=== PATIENT | female | born 1965 | race Caucasian/White ===

== ENCOUNTER 2021-10-17 12:38 | Emergency (ER) | payer OTHER ==
[~2021-10-17] VITALS: Ht 160 cm; Wt 93.9 kg
[2021-10-17 12:58] VITALS: BP_SYST 160
--- NOTE | 2021-10-17 12:58 | NUR ---
Pt triaged and placed in waiting room pending bed availability
--- NOTE | 2021-10-17 13:29 | NUR ---
Dr Fairchild to waiting area to examine patient
--- NOTE | 2021-10-17 14:20 | NUR ---
Patient to ER bed 3 for evaluation. Side rails up. Report given to Monique HARRELL.
--- NOTE | 2021-10-17 14:27 | NUR ---
Pt here from home reporting lower abd pain, described as "uterine contractions", 10/10 at moments. Does report PMH fibroids. VSS when checked. Pt alert and oriented x 3. Ambulating with steady gait. Awaiting lab results. Labs drawn while pt was in waiting room.
--- NOTE | 2021-10-17 14:44 | NUR ---
PATIENT BROUGHT TO CT AT THIS TIME.
[2021-10-17] MEDS ORDERED: KETOROLAC TROMETHAMINE 30 MG VIAL IVP ONE (14:45)
[2021-10-17] MEDS ORDERED: NACL 0.9% 1,000 ML IV ONE (14:45)
--- NOTE | 2021-10-17 14:46 | NUR ---
COVID SWAB DONE. URINE SPECIMEN COLLECTED. WALKED TO LAB.
[2021-10-17] MEDS ORDERED: fentaNYL CITRATE/PF 100 MCG/2 ML AMP IVP ONE (15:30)
[2021-10-17] MEDS ORDERED: ONDANSETRON HCL 4 MG/2 ML VIAL IVP ONE (15:30)
[2021-10-17 15:42] LABS: BILIRUBIN,URINE NEGATIVE (NEGATIVE); BLOOD, URINE NEGATIVE (NEGATIVE); COLOR,URINE YELLOW (YELLOW); GLUCOSE,URINE NEGATIVE (NEGATIVE); KETONES,URINE NEGATIVE (NEGATIVE); LEUKOCYTE ESTERASE ,URINE NEGATIVE (NEGATIVE); NITRITE, URINE NEGATIVE (NEGATIVE); PH,URINE 6.5 (5.0-8.0); PROTEIN URINE NEGATIVE (NEGATIVE); UROBILINOGEN,URINE 0.2 (0.2-1.0)
[2021-10-17 16:09] LABS: CLARITY/URINE HAZY (CLEAR)
[2021-10-17 16:17] LABS: BASOPHILS % (AUTO) 0.3 % (0.0-2.0); EOSINOPHILS % (AUTO) 0.2 % (0.0-4.0); HEMATOCRIT 38.9 % (36-48); HEMOGLOBIN 13.3 g/dL (12.0-16.0); LYMPHOCYTES # (AUTO) 0.6 K/uL (1.0-5.5); LYMPHOCYTES % (AUTO) 4.8 % (20.5-51.5); MEAN CORPUSCULAR HEMOGLOBIN 31 pg (27-31); MEAN CORPUSCULAR HGB CONC 34 % (32-36); MEAN CORPUSCULAR VOLUME 90 fL (79.0-98.0); MONOCYTES # (AUTO) 0.6 K/uL (0.0-1.0); MONOCYTES % (AUTO) 5.2 % (1.7-9.3); NEUTROPHILS # (AUTO) 10.9 K/uL (1.8-7.7); NEUTROPHILS % (AUTO) 89.5 % (40.0-70.0); PLATELET COUNT (AUTO) 298 K/uL (130-430); RED BLOOD CELL COUNT(AUTO) 4.31 MIL/uL (4.2-6.2); RED CELL DISTRIBUTION WIDTH 12.5 % (9.0-15.0); WHITE BLOOD COUNT (AUTO) 12.2 K/uL (4.8-10.8)
[2021-10-17 16:29] LABS: RBC,URINE 0-3 /HPF (0-3)
[2021-10-17 16:30] LABS: BACTERIA,URINE MODERATE /HPF (None Seen); MUCUS,URINE 1+ /LPF (None Seen)
[2021-10-17 16:39] LABS: CALCIUM 9.1 mg/dL (8.4-11.0); POTASSIUM 3.2 mmol/L (3.5-5.1)
[2021-10-17 16:45] LABS: ALBUMIN 3.3 g/dL (3.4-4.8); TOTAL BILIRUBIN 1.2 mg/dL (0.0-1.0)
[2021-10-17] MEDS ORDERED: LEVO750T45 PO (17:04)
[2021-10-17] MEDS ORDERED: METR-154 PO (17:05)
[2021-10-17] MEDS ORDERED: HYDR-3927 PO (17:06)
[2021-10-17] MEDS ORDERED: levoFLOXacin 500 MG TABLET PO ONE (17:15)
[2021-10-17] MEDS ORDERED: metroNIDAZOLE 500 MG TABLET PO ONE (17:15)
[2021-10-17 17:17] VITALS: BP_SYST 160
--- NOTE | 2021-10-17 17:17 | NUR ---
Patient given written and verbal discharge instructions and verbalizes understanding. ER MD discussed with patient the results and treatment provided. Patient in stable condition. ID arm band removed. IV catheter removed intact and dressing applied, no active bleeding. Rx of NORCO, LEVOFLOXACIN, METRONIDAZOLE given. Patient educated on pain management and to follow up with PMD. Pain Scale 0. Opportunity for questions provided and answered. Medication side effect fact sheet provided.
== END 2021-10-17 17:17 | disposition home or self-care (01) ==
LOC: SED 12:38
DX: R10.30 Lower abdominal pain, unspecified (principal); R11.0 Nausea; R19.7 Diarrhea, unspecified; Z20.822 Contact with and (suspected) exposure to COVID-19
CPT/HCPCS: 36415; 71045; 74176; 76376; 80053; 81000; 81025; 83605; 83690; 85025; 87040; 87086; 87426; 96361; 96374; 96375; 99285; J1885; J2405; J3010; J7030

== ENCOUNTER 2022-06-22 09:46 | Inpatient (IN) | payer OTHER ==
[~2022-06-22] VITALS: Ht 160 cm; Wt 80.3 kg
[~2022-06-22 09:46] MED LIST: HYDR-3927 PO; LEVO750T64 PO; METR-154 PO
[2022-06-22 09:51] VITALS: BP_SYST 110
[2022-06-22 10:32] LABS: BILIRUBIN,URINE 2+ (NEGATIVE); BLOOD, URINE NEGATIVE (NEGATIVE); COLOR,URINE YELLOW (YELLOW); GLUCOSE,URINE NEGATIVE (NEGATIVE); KETONES,URINE TRACE (NEGATIVE); LEUKOCYTE ESTERASE ,URINE NEGATIVE (NEGATIVE); NITRITE, URINE POSITIVE (NEGATIVE); PH,URINE 5.5 (5.0-8.0); PROTEIN URINE 2+ (NEGATIVE)
[2022-06-22 10:38] LABS: BASOPHILS % (AUTO) 0.1 % (0.0-2.0); EOSINOPHILS # (AUTO) 0.1 K/uL (0.0-0.4); HEMATOCRIT 40.4 % (36-48); HEMOGLOBIN 14.5 g/dL (12.0-16.0); LYMPHOCYTES # (AUTO) 0.9 K/uL (1.0-5.5); LYMPHOCYTES % (AUTO) 8.2 % (20.5-51.5); MEAN CORPUSCULAR HEMOGLOBIN 33 pg (27-31); MEAN CORPUSCULAR HGB CONC 36 % (32-36); MEAN CORPUSCULAR VOLUME 92 fL (79.0-98.0); MONOCYTES # (AUTO) 0.7 K/uL (0.0-1.0); MONOCYTES % (AUTO) 6.2 % (1.7-9.3); NEUTROPHILS % (AUTO) 84.5 % (40.0-70.0); PLATELET COUNT (AUTO) 299 K/uL (130-430); RED BLOOD CELL COUNT(AUTO) 4.38 MIL/uL (4.2-6.2); RED CELL DISTRIBUTION WIDTH 12.3 % (9.0-15.0)
[2022-06-22 10:50] LABS: WHITE BLOOD COUNT (AUTO) 10.6 K/uL (4.8-10.8)
[2022-06-22 10:59] LABS: PROTHROMBIN TIME 10.1 SECS (9.5-12.5)
[2022-06-22 11:09] LABS: CLARITY/URINE HAZY (CLEAR)
[2022-06-22 11:21] LABS: ANION GAP 12 (5-15); CALCIUM 10.6 mg/dL (8.4-11.0); CHLORIDE 96 mmol/L (98-107); CREATININE 1.09 mg/dL (0.55-1.30); GFR AFRICAN AMERICAN 67 mL/min (>90); GLUCOSE 140 mg/dL (70-99); UREA NITROGEN, BLOOD 18 mg/dL (8-21)
[2022-06-22 11:22] LABS: AMYLASE 26 U/L (0-100); LIPASE 91 U/L (73-393)
[2022-06-22 11:46] LABS: ALANINE AMINOTRANSFERASE 52 U/L (12-78); ALBUMIN 3.7 g/dL (3.4-4.8); ASPARTATE AMINOTRANSFERASE 36 U/L (10-37); TOTAL BILIRUBIN 1.2 mg/dL (0.0-1.0)
[2022-06-22 12:06] LABS: ACETONE, SERUM NEGATIVE (NEGATIVE)
[2022-06-22 12:06] LABS: BILIRUBIN,URINE 1+ (NEGATIVE); BLOOD, URINE NEGATIVE (NEGATIVE); COLOR,URINE YELLOW (YELLOW); GLUCOSE,URINE NEGATIVE (NEGATIVE); KETONES,URINE NEGATIVE (NEGATIVE); LEUKOCYTE ESTERASE ,URINE NEGATIVE (NEGATIVE); NITRITE, URINE NEGATIVE (NEGATIVE); PROTEIN URINE 1+ (NEGATIVE)
[2022-06-22 12:12] LABS: CLARITY/URINE SLIGHTLY HAZY (CLEAR)
[2022-06-22] MEDS ORDERED: MORPHINE 2 MG/ML INJ. SYRINGE IVP ONE (12:30)
[2022-06-22] MEDS ORDERED: PIPERACILLIN/TAZO 3.375 GM in NS 50 ML IV ONE (12:30)
[2022-06-22] MEDS ORDERED: PIPERACILLIN/TAZOBACTAM 3.375 GM/VIAL (ZOSYN) IV ONE (12:43)
[2022-06-22 12:47] LABS: C-REACTIVE PROTEIN QUANT 24.7 mg/dL (0-0.5)
[2022-06-22] MEDS ORDERED: HYDROmorphone 2 MG/ML VIAL IVP PRN (15:00)
[2022-06-22] MEDS ORDERED: ACETAMINOPHEN 325 MG TABLET PO PRN ×2 (15:00→23:30)
[2022-06-22] MEDS ORDERED: ACETAMINOPHEN 500 MG TABLET PO ONE (15:15)
[2022-06-22] MEDS: ONDANSETRON HCL 4 MG/2 ML VIAL IVP PRN (15:41)
[2022-06-22] MEDS: HYDROmorphone 1 MG/ML INJ. CARTRIDGE IVP PRN ×2 (15:44→23:29)
[2022-06-22] MEDS ORDERED: NALOXONE HCL 0.4 MG/ML AMP (NARCAN) IVP PRN (15:45)
[2022-06-22] MEDS ORDERED: metroNIDAZOLE 500 mg/NS 100 ML IV ONE (16:00)
[2022-06-22] MEDS ORDERED: LOSA100T23 PO (17:22)
[2022-06-22] MEDS ORDERED: AUG875 PO (17:22)
[2022-06-22] MEDS ORDERED: FLUO40CA49 PO (17:22)
[2022-06-22 18:45] VITALS: BP_SYST 90
[2022-06-22 19:00] VITALS: BP_SYST 102
[2022-06-22] MEDS: PIPERACILLIN/TAZO 3.375/DEX-IS 50 ML IV SCH (19:45)
[2022-06-22] MEDS: POTASSIUM CHLORIDE 20 MEQ in D5NS 1,000 ML IV SCH (19:45)
[2022-06-22] MEDS ORDERED: SACCHAROMYCES BOULARDII 250 MG CAPSULE (FLORASTOR) PO SCH (21:00)
[2022-06-22] MEDS: metroNIDAZOLE 500 mg/NS 100 ML IV SCH (21:20)
[2022-06-22] MEDS: LACTOBACILLUS RHAMNOSUS GG 1 CAP CAPSULE PO SCH (21:21)
[2022-06-22] MEDS: ENOXAPARIN SODIUM 40 MG/0.4 ML SYRINGE SUBCUT SCH (21:21)
[2022-06-23 00:43] VITALS: BP_SYST 100
[2022-06-23] MEDS: PIPERACILLIN/TAZO 3.375/DEX-IS 50 ML IV SCH ×2 (00:55→05:28)
[2022-06-23] MEDS: POTASSIUM CHLORIDE 20 MEQ in D5NS 1,000 ML IV SCH ×3 (02:30→12:36)
[2022-06-23] MEDS: HYDROmorphone 1 MG/ML INJ. CARTRIDGE IVP PRN ×4 (05:31→23:45)
[2022-06-23] MEDS: metroNIDAZOLE 500 mg/NS 100 ML IV SCH ×3 (06:03→23:45)
[2022-06-23 07:11] LABS: BASOPHILS % (AUTO) 0.2 % (0.0-2.0); EOSINOPHILS # (AUTO) 0.1 K/uL (0.0-0.4); EOSINOPHILS % (AUTO) 1.1 % (0.0-4.0); HEMATOCRIT 36.8 % (36-48); HEMOGLOBIN 13.4 g/dL (12.0-16.0); LYMPHOCYTES # (AUTO) 1.1 K/uL (1.0-5.5); LYMPHOCYTES % (AUTO) 11.1 % (20.5-51.5); MEAN CORPUSCULAR HEMOGLOBIN 33 pg (27-31); MEAN CORPUSCULAR HGB CONC 36 % (32-36); MEAN CORPUSCULAR VOLUME 91 fL (79.0-98.0); MONOCYTES # (AUTO) 0.7 K/uL (0.0-1.0); MONOCYTES % (AUTO) 7.7 % (1.7-9.3); NEUTROPHILS # (AUTO) 7.5 K/uL (1.8-7.7); NEUTROPHILS % (AUTO) 79.9 % (40.0-70.0); PLATELET COUNT (AUTO) 308 K/uL (130-430); RED BLOOD CELL COUNT(AUTO) 4.03 MIL/uL (4.2-6.2); RED CELL DISTRIBUTION WIDTH 12.2 % (9.0-15.0); WHITE BLOOD COUNT (AUTO) 9.4 K/uL (4.8-10.8)
[2022-06-23 07:31] LABS: CALCIUM 10.1 mg/dL (8.4-11.0); CREATININE 0.95 mg/dL (0.55-1.30)
[2022-06-23 08:00] VITALS: BP_SYST 105
[2022-06-23] MEDS: LACTOBACILLUS RHAMNOSUS GG 1 CAP CAPSULE PO SCH ×2 (09:00→22:07)
[2022-06-23] MEDS ORDERED: POTASSIUM CHLORIDE 20 MEQ/PKT PACKET PO ONE (10:00)
[2022-06-23 12:00] VITALS: BP_SYST 101
[2022-06-23] MEDS: FLUCONAZOLE 200 mg/ NS 100 ML IV SCH (12:35)
[2022-06-23] MEDS ORDERED: FLUoxetine HCL 20 MG CAPSULE (PROzac) PO ONE (14:45)
[2022-06-23 16:00] VITALS: BP_SYST 98
[2022-06-23] MEDS: ONDANSETRON HCL 4 MG/2 ML VIAL IVP PRN (18:41)
[2022-06-23 20:23] VITALS: BP_SYST 111
[2022-06-23 20:25] VITALS: BP_SYST 111
[2022-06-23] MEDS ORDERED: TEMAZEPAM 7.5 MG CAPSULE PO SCH (21:00)
[2022-06-23] MEDS: ENOXAPARIN SODIUM 40 MG/0.4 ML SYRINGE SUBCUT SCH (22:08)
[2022-06-24] MEDS: HYDROmorphone 1 MG/ML INJ. CARTRIDGE IVP PRN ×4 (01:21→16:00)
[2022-06-24 06:01] LABS: BASOPHILS % (AUTO) 0.5 % (0.0-2.0); EOSINOPHILS # (AUTO) 0.2 K/uL (0.0-0.4); EOSINOPHILS % (AUTO) 1.8 % (0.0-4.0); HEMATOCRIT 33.6 % (36-48); HEMOGLOBIN 11.8 g/dL (12.0-16.0); LYMPHOCYTES # (AUTO) 1.2 K/uL (1.0-5.5); LYMPHOCYTES % (AUTO) 14.1 % (20.5-51.5); MEAN CORPUSCULAR HEMOGLOBIN 33 pg (27-31); MEAN CORPUSCULAR HGB CONC 35 % (32-36); MEAN CORPUSCULAR VOLUME 93 fL (79.0-98.0); MONOCYTES # (AUTO) 0.8 K/uL (0.0-1.0); MONOCYTES % (AUTO) 9.8 % (1.7-9.3); NEUTROPHILS # (AUTO) 6.3 K/uL (1.8-7.7); NEUTROPHILS % (AUTO) 73.8 % (40.0-70.0); PLATELET COUNT (AUTO) 325 K/uL (130-430); RED BLOOD CELL COUNT(AUTO) 3.61 MIL/uL (4.2-6.2); RED CELL DISTRIBUTION WIDTH 12.3 % (9.0-15.0); WHITE BLOOD COUNT (AUTO) 8.6 K/uL (4.8-10.8)
[2022-06-24 06:29] LABS: CALCIUM 9.7 mg/dL (8.4-11.0); CREATININE 0.53 mg/dL (0.55-1.30)
[2022-06-24 08:00] VITALS: BP_SYST 108
[2022-06-24] MEDS: POTASSIUM CHLORIDE 20 MEQ in D5NS 1,000 ML IV SCH (08:24)
[2022-06-24] MEDS ORDERED: FLUoxetine HCL 20 MG CAPSULE (PROzac) PO SCH (09:00)
[2022-06-24] MEDS: LACTOBACILLUS RHAMNOSUS GG 1 CAP CAPSULE PO SCH (09:24)
[2022-06-24 12:00] VITALS: BP_SYST 104
[2022-06-24] MEDS: FLUCONAZOLE 200 mg/ NS 100 ML IV SCH (12:49)
[2022-06-24] MEDS: metroNIDAZOLE 500 mg/NS 100 ML IV SCH (14:46)
[2022-06-24 16:00] VITALS: BP_SYST 122
== END 2022-06-24 18:59 | disposition home or self-care (01) | DRG 392 ==
LOC: SED 09:46 → SMU 12:56
PROVIDERS: ADMIT Family Medicine; ATTEND Family Medicine
DX: K57.32 Diverticulitis of large intestine without perforation or abscess without bleeding (principal); E87.20 Acidosis, unspecified; Z20.822 Contact with and (suspected) exposure to COVID-19; E66.9 Obesity, unspecified; F32.A Depression, unspecified; G47.00 Insomnia, unspecified; I10 Essential (primary) hypertension; Z88.8 Allergy status to other drugs, medicaments and biological substances; Z79.899 Other long term (current) drug therapy; Z68.31 Body mass index [BMI] 31.0-31.9, adult
CPT/HCPCS: 36415; 76376; 80048; 80053; 81003; 82009; 82150; 83605; 83690; 83735; 85025; 85610-TC; 85730-TC; 86140; 87081; 96365; 96375; 99285; J0696; J1170; J1450; J1650; J2270; J2405; J2543; J3480; J3490; J7042; J7060